=== PATIENT | male | born 1940 | race Two or more races ===

== ENCOUNTER → 2016-06-29 | Outpatient (CLI) | payer OTHER, MEDICARE, BC ==
[~2016-06-29] MED LIST: CRESTOR10 MG PO; DOCUSATE SODIU100 MG PO; IBUPROFEN400 MG PO; MELATONIN1 MG PO; MULTI VITAMIN1 EACH PO; PROTONIX PO
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
== END | disposition home or self-care (01) ==
LOC: SMRI 08:29
DX: M54.2 Cervicalgia (principal); R93.7 Abnormal findings on diagnostic imaging of other parts of musculoskeletal system; M25.511 Pain in right shoulder; M47.812 Spondylosis without myelopathy or radiculopathy, cervical region; M48.02 Spinal stenosis, cervical region; M50.21 Other cervical disc displacement, high cervical region; M50.221 Other cervical disc displacement at C4-C5 level; G95.89 Other specified diseases of spinal cord; V89.2XXA Person injured in unspecified motor-vehicle accident, traffic, initial encounter
CPT/HCPCS: 72141